=== PATIENT | male | born 1940 | race Caucasian/White ===

== ENCOUNTER 2022-11-30 08:53 | Day surgery (SDC) | payer OTHER ==
[~2022-11-30] VITALS: Ht 182.9 cm; Wt 105.7 kg
[~2022-11-30 08:53] MED LIST: CEFAZOLIN SOD 1 GM in D5W 50 ML IV ONE
[2022-11-30] MEDS ORDERED: HYDROmorphone 1 MG/ML INJ. CARTRIDGE ONE (13:12)
[2022-11-30] MEDS ORDERED: HYDROmorphone 1 MG/ML INJ. CARTRIDGE IVP ONE (13:15)
[2022-11-30] MEDS ORDERED: LISI30TA36 PO (13:24)
[2022-11-30] MEDS ORDERED: PRAV40TA63 PO (13:26)
[2022-11-30] MEDS ORDERED: TAMS-11 PO (13:26)
[2022-11-30] MEDS ORDERED: ISOFLURANE 15 MIN GAS INH ONE (13:30)
[2022-11-30] MEDS ORDERED: NS IRRIG SOLN 5000 ML IR ONE (13:30)
[2022-11-30] MEDS ORDERED: ONDANSETRON HCL 4 MG/2 ML VIAL ONE (13:30)
[2022-11-30] MEDS ORDERED: ePHEDrine sulfate 50 MG/ML VIAL ONE (13:30)
[2022-11-30] MEDS ORDERED: BUPIVACAINE /PF 0.25% 30 ML VIAL INJ ONE (13:30)
[2022-11-30] MEDS ORDERED: NS IRRIG SOLN 1000 ML IR ONE (13:30)
[2022-11-30] MEDS ORDERED: LIDOCAINE 2%, 20 ML MDV ONE (13:30)
[2022-11-30] MEDS ORDERED: NS 1000 ML IV.SOLN IV ONE (13:30)
[2022-11-30] MEDS ORDERED: VANCOMYCIN HCL 1000 MG/VIAL IV ONE (13:30)
[2022-11-30] MEDS ORDERED: MIDAZOLAM HCL/PF 2 MG/2 ML SYRINGE ONE (13:30)
[2022-11-30] MEDS ORDERED: TRANEXAMIC ACID 1,000 MG/10 ML VIAL ONE (13:30)
[2022-11-30] MEDS ORDERED: fentaNYL CITRATE/PF 100 MCG/2 ML AMP ONE (13:30)
[2022-11-30] MEDS ORDERED: PROPOFOL 200MG/ 20ML VIAL (DIPRIVAN) IV ONE (13:30)
[2022-11-30] MEDS ORDERED: DEXAMETHASONE SOD PHOSPHATE 4 MG/ML VIAL ONE (13:30)
[2022-11-30] MEDS ORDERED: ROCURONIUM BROMIDE 10 MG/ML (ZEMURON) ONE (13:30)
[2022-11-30] MEDS ORDERED: ACETAMINOPHEN I.V. 1000 MG 100 ML IV ONE (15:09)
[2022-11-30] MEDS ORDERED: ONDANSETRON HCL 4 MG/2 ML VIAL IVP PRN (15:15)
[2022-11-30] MEDS ORDERED: METOCLOPRAMIDE HCL 10 MG/2 ML VIAL IVP PRN (15:15)
[2022-11-30] MEDS ORDERED: fentaNYL CITRATE/PF 100 MCG/2 ML AMP IVP PRN ×2 (15:15)
[2022-11-30] MEDS ORDERED: KETOROLAC TROMETHAMINE 15 MG VIAL IVP PRN (17:15)
[2022-11-30] MEDS ORDERED: ONDANSETRON 4 MG ODT TAB PO PRN (17:15)
[2022-11-30] MEDS ORDERED: ceFAZolin SODIUM 2 GM in D5W 50 ML IV ONE (18:15)
[2022-11-30 18:50] VITALS: BP_SYST 135; PULSE 88; RESP 20; TEMP 97.6; O2SAT 90
[2022-11-30 20:00] VITALS: BP_SYST 137; PULSE 101; RESP 20; TEMP 97.4; O2SAT 94; O2SAT 95
[2022-11-30 22:25] VITALS: BP_SYST 137; PULSE 101; RESP 20; TEMP 97.4
[2022-11-30] MEDS: ceFAZolin SODIUM 2 GM in D5W 50 ML IV SCH (22:28)
[2022-11-30 22:40] VITALS: O2SAT 94
[2022-12-01] VITALS (9 sets, daily range): BP systolic 124–143; PULSE 85–111; RESP 16–20; TEMP 97.1–98.4; O2SAT 93–100
[2022-12-01] MEDS: ceFAZolin SODIUM 2 GM in D5W 50 ML IV SCH ×2 (06:29→13:09)
[2022-12-01] MEDS ORDERED: ASPIRIN 81 MG TABLET(ECOTRIN) PO SCH (09:00)
[2022-12-01] MEDS: HYDROcodone/ACETAMIN 10-325 MG TAB PO PRN ×2 (10:43→15:16)
[2022-12-01] MEDS ORDERED: lisinopriL 20 MG TABLET PO ONE (11:00)
[2022-12-01] MEDS ORDERED: ATORVASTATIN 10 MG TABLET PO ONE (11:00)
[2022-12-01] MEDS ORDERED: TAMSULOSIN HCL 0.4 MG CAP PO ONE (11:00)
[2022-12-02] MEDS ORDERED: lisinopriL 20 MG TABLET PO SCH (09:00)
[2022-12-02] MEDS ORDERED: TAMSULOSIN HCL 0.4 MG CAP PO SCH (09:00)
[2022-12-02] MEDS ORDERED: ATORVASTATIN 10 MG TABLET PO SCH (09:00)
== END 2022-12-01 16:55 | disposition home or self-care (01) ==
LOC: SDS 08:53 → SMU 08:54 → SDS 12-01 16:55
PROVIDERS: ATTEND Orthopaedic Surgery
DX: M19.012 Primary osteoarthritis, left shoulder (principal); M75.102 Unspecified rotator cuff tear or rupture of left shoulder, not specified as traumatic; I10 Essential (primary) hypertension; E78.5 Hyperlipidemia, unspecified; Z91.040 Latex allergy status; E66.9 Obesity, unspecified; Z79.899 Other long term (current) drug therapy
CPT/HCPCS: 87081; 23472; 97163; 73020; 97116; 88304; 88311; J3490 ×2; J0690; J1100; J2001; J3465; J2405; J2704; J3370; J3010; J7060; J7030; A4565; C1713 ×3; C1776 ×5; J0131; J1885; 88305; J1170